=== PATIENT | male | born 1955 | race Caucasian/White ===

== ENCOUNTER 2021-08-29 15:01 | Emergency (ER) | payer MEDICARE ==
[2021-08-29] MEDS ORDERED: ACETAMINOPHEN TAB 500 MG TAB PO STA (17:15)
[2021-08-29] MEDS ORDERED: SODIUM CHLORIDE 0.9% 2,000 ML IV STA (17:15)
[2021-08-29] MEDS ORDERED: ONDANSETRON 4 MG/2 ML VIAL IVP STA (17:15)
[2021-08-29] MEDS ORDERED: diphenhydrAMINE 50 MG/ML 1 ML VIAL IVP STA (17:15)
[2021-08-29] MEDS ORDERED: FAMOTIDINE 20 MG/2 ML VIAL IV STA (17:16)
[2021-08-29] MEDS ORDERED: KETOROLAC 15 MG/ML 1 ML VIAL IVP STA (17:17)
--- NOTE | 2021-08-29 17:50 | XR ---
EXAMINATION TYPE: XR chest 1V portable DATE OF EXAM: 08/29/2021 COMPARISON: NONE HISTORY: Weakness TECHNIQUE: Single view FINDINGS: Heart is normal. Lungs are clear of infiltrate. There is no heart failure. There are no hil ar masses. Bony thorax is intact. IMPRESSION: Normal chest.
[2021-08-29 18:01] LABS: HCT 47.7 % (39.0-53.0); HGB 16.6 gm/dL (13.0-17.5); MCH 34.5 pg (25.0-35.0); MCHC 34.8 g/dL (31.0-37.0); MCV 99.3 fL (80.0-100.0); Mean Platelet Volume 8.7; RBC 4.81 m/uL (4.30-5.90); RDW 13.5 % (11.5-15.5); WBC 3.8 k/uL (3.8-10.6)
[2021-08-29 18:20] LABS: ALT 44 U/L (4-49); AST 103 U/L (17-59); African American GFR (CKD) >90 (>60 ml/min/1.73 sqM); Albumin 4.6 g/dL (3.5-5.0); Alkaline Phosphatase 99 U/L (38-126); Amylase 56 U/L (30-110); Anion Gap 14 mmol/L; Blood Urea Nitrogen 15 mg/dL (9-20); Calcium 9.2 mg/dL (8.4-10.2); Carbon Dioxide 23 mmol/L (22-30); Chloride 96 mmol/L (98-107); Glucose 148 mg/dL (74-99); Lipase 90 U/L (23-300); Magnesium 1.8 mg/dL (1.6-2.3); Non-African American GFR(CKD) >90 (>60 ml/min/1.73 sqM); Sodium 133 mmol/L (137-145); Total Bilirubin 0.9 mg/dL (0.2-1.3); Total Protein 8.3 g/dL (6.3-8.2)
[2021-08-29] MEDS ORDERED: BAMLANIVIMAB (EUA) 700 MG, ETESEVIMAB (EUA) 1,400 MG in SODIUM CHLORIDE 0.9% 50 ML IVPB ONE (19:15)
[2021-08-29] MEDS ORDERED: SODIUM CHLORIDE 0.9% 50 ML IVPB ONE (19:15)
[2021-08-29 19:45] LABS: Band Neutrophils % 1 %; Lymphocytes # (M) 0.42 k/uL (1.0-4.8); Monocytes # (M) 0.34 k/uL (0-1.0); Neutrophils % (M) 79 %; Nucleated Red Blood Cells 0 /100 WBC (0-0); Total Cells Counted 100
[2021-08-29 19:46] LABS: Platelet Count 93 k/uL (150-450)
[2021-08-29 20:12] VITALS: BP 170/101; PULSE 95; RESP 16
[2021-08-29 20:14] VITALS: TEMP 99
--- NOTE | 2021-08-29 20:22 | ED ---
General Adult HPI - General Chief complaint: Nausea/Vomiting/Diarrhea Stated complaint: Vomiting Time Seen by Provider: 08/29/21 16:58 Source: patient, RN notes reviewed, old records reviewed Mode of arrival: ambulatory Limitations: no limitations - History of Present Illness Initial comments: Patient is a 66-year-old male with past medical history remarkable for daily mild alcohol use, as per day who presents emergency Department complaining of nausea and vomiting on a daily basis since Tuesday. He does have a Covid exposure last Tuesday. Denies any upper respiratory symptoms including shortness of breath, coughing, chest pain. Denies any abdominal pain. He intermittently can tolerate by mouth intake at home, mostly fluids. Presents today over concern for dehydration possible infectious etiology. Denies any history of alcohol withdrawals. Last drink alcohol on Tuesday. Denies any fevers, chills. Presents over concern for possible COVID-19 infection. I evaluated the patient and he was placed in a room. - Related Data Previous Rx's Medication Instructions Recorded Acetaminophen [Tylenol] 500 mg PO Q4-6H PRN 7 Days #28 tab 08/29/21 Albuterol Inhaler [Ventolin Hfa 1 puff INHALATION RT-QID #8 gm 08/29/21 Inhaler] Ondansetron Odt [Zofran Odt] 4 mg PO Q8HR PRN 2 Days #6 tab 08/29/21 Allergies Allergy/AdvReac Type Severity Reaction Status Date / Time No Known Allergies Allergy Verified 08/29/21 15:23 Review of Systems ROS Statement: Those systems with pertinent positive or pertinent negative responses have been documented in the HPI. Review of Systems: CONST: Denies fever EYES: Denies blurry vision ENT: Denies nasal congestion C/V: Denies Chest pain RESP: Denies shortness of breath GI: Endorses nausea : Denies dysuria SKIN: Denies rash. MSK: Denies joint pain. NEURO: Denies headache ROS Other: All systems not noted in ROS Statement are negative. Past Medical History Past Medical History: Hyperlipidemia, Hypertension History of Any Multi-Drug Resistant Organisms: None Reported Past Surgical History: Hernia Repair Past Psychological History: No Psychological Hx Reported Smoking Status: Never smoker Past Alcohol Use History: Daily Past Drug Use History: None Reported General Exam - General Exam Comments Initial Comments: General: Appears in no acute distress. Low-grade fever. HEAD: Normal with no signs of head trauma. EYES: PERRLA, EOMI, conjunctiva normal, no discharge. ENT: Hearing grossly intact, normal oropharynx. RESPIRATORY: Clear breath sounds bilaterally. No wheezes, rales, or rhonchi. C/V: Regular rate and rhythm. S1 and S2 auscultated, no edema, peripheral pulses 2+ and intact throughout ABD: Abd is soft, nontender, nondistended EXT: Normal range of motion, no obvious deformity SKIN: No rashes or lesions observed on exposed skin. NEURO: Alert and oriented 4. No tremors present. Limitations: no limitations Course Vital Signs 08/29/21 08/29/21 08/29/21 15:20 20:10 20:14 Temperature 100 F H 99 F Pulse Rate 106 H 95 Respiratory 22 16 Rate Blood Pressure 178/117 170/101 O2 Sat by Pulse 96 98 Oximetry Medical Decision Making - Medical Decision Making Based on the patient's presentation and physical exam, I am concerned for COVID- 19 infection. Femoral intra-abdominal etiology for his nausea. Therefore we will obtain a screening EKG, chest x-ray, as well as basic abdominal laboratories studies. COVID 19 swab was found in triage was found to be positive. He'll be given a 1 L fluid bolus, IV Zofran and Toradol Pepcid and Benadryl. He was in agreement this plan. Patient's EKG shows no signs of acute ischemia. Patient's chest x-ray reveals no acute cardio primary process. Laboratory studies are remarkable for a normocytic anahi of 93 with no prior platelet counts. No bleeding currently. There is no leukocytosis. Patient is mildly dehydrated with a sodium of 133 and chloride of 96. Remainder the labs are unremarkable. On reevaluation, patient is feeling improved. He would like to go home. I did discuss monoclonal antibodies with him he does meet criteria and he did accept. Patient will be administered monoclonal antibodies been discharged home afterwards. He tolerated the therapy well. I discussed his thrombocytopenia with the patient and would like to have him obtain follow-up laboratory studies an outpatient basis. He will be given a PCP. We discussed quarentine. I will provide the patient with a prescription for Zofran ODT, Tylenol, albuterol. I instructed the patient to follow up with their PCP in the next 3 d ays. I provided contact information for follow up with Dr. Coker. I explained that the patient should return to the emergency department if they experience any worsening symptoms. Strict return precautions were discussed with the patient. The patient expressed understanding of these instructions. I answered all questions that the patient had. The patient was discharged home in good condition with their prescriptions and follow up information. - Lab Data Result diagrams: 08/29/21 17:56 08/29/21 17:56 Lab Results 08/29/21 08/29/21 08/29/21 Range/Units 15:25 17:56 17:56 WBC 3.8 (3.8-10.6) k/uL RBC 4.81 (4.30-5.90) m/uL Hgb 16.6 (13.0-17.5) gm/dL Hct 47.7 (39.0-53.0) % MCV 99.3 (80.0-100.0) fL MCH 34.5 (25.0-35.0) pg MCHC 34.8 (31.0-37.0) g/dL RDW 13.5 (11.5-15.5) % Plt Count 93 L (150-450) k/uL MPV 8.7 Neutrophils % (Manual) 79 % Band Neuts % (Manual) 1 % Lymphocytes % (Manual) 11 % Monocytes % (Manual) 9 % Neutrophils # (Manual) 3.00 (1.3-7.7) k/uL Lymphocytes # (Manual) 0.42 L (1.0-4.8) k/uL Monocytes # (Manual) 0.34 (0-1.0) k/uL Nucleated RBCs 0 (0-0) /100 WBC Manual Slide Review Performed Sodium 133 L (137-145) mmol/L Potassium 4.0 (3.5-5.1) mmol/L Chloride 96 L (98-107) mmol/L Carbon Dioxide 23 (22-30) mmol/L Anion Gap 14 mmol/L BUN 15 (9-20) mg/dL Creatinine 0.71 (0.66-1.25) mg/dL Est GFR (CKD-EPI)AfAm >90 (>60 ml/min/1.73 sqM) Est GFR (CKD-EPI)NonAf >90 (>60 ml/min/1.73 sqM) Glucose 148 H (74-99) mg/dL Calcium 9.2 (8.4-10.2) mg/dL Magnesium 1.8 (1.6-2.3) mg/dL Total Bilirubin 0.9 (0.2-1.3) mg/dL AST 103 H (17-59) U/L ALT 44 (4-49) U/L Alkaline Phosphatase 99 (38-126) U/L Total Protein 8.3 H (6.3-8.2) g/dL Albumin 4.6 (3.5-5.0) g/dL Amylase 56 (30-110) U/L Lipase 90 (23-300) U/L Coronavirus (PCR) Detected A (Not Detectd) - EKG Data -: EKG Interpreted by Me EKG Comments: 12-lead Electrocardiogram Interpretation Note EKG was reviewed and interpreted by myself. 12-lead ECG performed at 1753 is interpreted by me as revealing normal sinus rhythm at a rate of 100 beats per minute. [place] is normal. OK interval is 134 ms, QRS duration is 98 ms, QTc is 464 ms.. There were no ST or T wave abnormalities to suggest myocardial ischemia or injury. R wave progression across the precordium was satisfactory. By my interpretation this EKG is non-diagnostic for acute ischemia. Disposition Clinical Impression: COVID-19 virus infection, Nausea and vomiting, Thrombocytopenia Disposition: HOME SELF-CARE Condition: Fair Instructions (If sedation given, give patient instructions): Acute Nausea and Vomiting (ED), Coronavirus Disease 2019 (COVID-19), Thrombocytopenia (ED) Prescriptions: Acetaminophen [Tylenol] 500 mg PO Q4-6H PRN 7 Days #28 tab PRN Reason: Fever Albuterol Inhaler [Ventolin Hfa Inhaler] 1 puff INHALATION RT-QID #8 gm Ondansetron Odt [Zofran Odt] 4 mg PO Q8HR PRN 2 Days #6 tab PRN Reason: Nausea Is patient prescribed a controlled substance at d/c from ED?: No Referrals: None,Stated [Primary Care Provider] - 1-2 days Sultana Coker MD [STAFF PHYSICIAN] - 1-2 days
== END 2021-08-29 20:57 | disposition home or self-care (01) ==
LOC: EC 15:01
DX: U07.1 COVID-19 (principal); R11.2 Nausea with vomiting, unspecified; D69.6 Thrombocytopenia, unspecified; E78.5 Hyperlipidemia, unspecified; I10 Essential (primary) hypertension; Z72.89 Other problems related to lifestyle
CPT/HCPCS: 36415; 93005; 80053; 82150; 83690; 83735; 85025; 87635; 71045; 99284; 96374; 96375 ×3; J1200; J2405; J1885; J3490